=== PATIENT | male | born 1970 | race Caucasian/White ===

== ENCOUNTER 2023-03-13 10:29 | Outpatient (AMB) | payer OTHER, SELFPAY ==
--- NOTE | 2023-03-13 10:39 | MHC.OFFVIS ---
Intake Vital Signs 03/13/23 10:45 Height 5 ft 4 in Weight 119 lb BMI 20.4 Intake Visit Reasons: L posterior acetabular roof/iliac bone Fx 4mm Intake Note: Brendan 52 year old male who presents today for an evaluation of left posterior acetabular roof/iliac bone fracture, DOI . Patient reports he tripped causing him to fall and was unable to move his left leg. He presented to [facility] where xrays were taken, he followed up with PCP who referred him to orthopedics. Currently constant throbbing pain. No relief with Tylenol and Motrin. Denies numbness or tingling. Hx of left hip replacement. Allergies No Known Allergies Allergy (Verified 03/13/23 10:43) HPI L posterior acetabular roof/iliac bone Fx 4mm HPI Details 52-year-old male who presents to the office today for left hip pain. He has a LT hip hemiarthroplasty approx 20-25 years ago at [facility] resulting from a fall. On 02/15/23, he sustained another fall resulting in inability to weight bear on the LLE. He was seen at [facility] where x-rays were performed and he was followed-up with her PCP who referred him to our office. CT scan of the left hip at [facility] showed fracture through acetabular/iliac roof with 4mm displacement. There was also evidence of chronic fracture around the neck of the prosthesis which was also seen on imaging in 2013. He states he has a constant throbbing pain in his left leg. He is unable to bear weight on his left leg. He denies any numbness or tingling. He finds no relief with Tylenol or Motrin. [facility] Surgical History (Updated 03/13/23 @ 11:56 by Chris Payne PA-C) History of left hip replacement Social History (Updated 03/13/23 @ 10:44 by SAMI Orosco) Patient Tobacco Use Status: Current someday Tobacco user Current occupational status: unemployed Review of Systems Const All systems reviewed & are unremarkable except as noted in HPI and below Physical Exam Vital Signs: BMI result Body Mass Index 20.4 Const General: cooperative, healthy appearing, comfortable, no acute distress, well developed and alert Orientation/consciousness: patient oriented x3 HEENT Head: Yes normal to inspection, Yes normocephalic and Yes atraumatic Eyes General: appearance normal, both eyes and all related structures Resp Effort & Inspection: normal respiratory effort and able to speak in complete sentences Cardio Rate: regular rate Peripheral pulses: Peripheral pulses 2+ throughout GI Palpation (GI): Soft to palpation Skin Lesions: no lesions Rashes: no rashes Neuro General: patient oriented x3 Extrem Other: Left hip: Pain with ROM. He also experiences pain with hip flexion and extension. He walks with antalgic gait with a walker only applying pressure to the toes. NVI. Results Reviewed Results Reviewed: X-rays of the left hip obtained in the office today show intact hip prosthesis. There is some abnormality to the acetabulum with some evidence of bone loss along the greater and lesser trochanter of femur. Assessment & Plan Assessment & Plan (1) History of left hip hemiarthroplasty: Code(s): Z96.642 - Presence of left artificial hip joint Plan Images were reviewed with Dr. Britt. Because of the extent of his injury, it would be best that he be seen at a facility that performs complex revision hip arthroplasties which our office will facilitate and contact him with an appointment. He does understand all this. He did request pain medication at the time of his visit which I deferred to his PCP. He is content with this plan. Orders: Orders XR pelvis 1-2V Today M25.559 - Pain in unspecified hip Patient Instructions: Scribed for Chris Payne PA-C, by Uriel Olivarez general medical practitioner, on 03/13/2023 at 10:30 AM EST. IChris PA-C, have personally reviewed and agree with the information entered by the scribe. Coding Level of Care Code New Pt Level 3 (20034) Diagnoses History of left hip hemiarthroplasty Z96.642
[2023-03-13 10:45] VITALS: BMI 20.4
== END 2023-03-13 11:56 | disposition home or self-care (01) ==
PROVIDERS: PCP Nurse Practitioner Family; Visit Provider Physician Assistant
DX: S32.312A Displaced avulsion fracture of left ilium, initial encounter for closed fracture (principal); S32.422A Displaced fracture of posterior wall of left acetabulum, initial encounter for closed fracture
CPT/HCPCS: 99203

== ENCOUNTER 2023-03-13 17:15 | Outpatient (REF) | payer OTHER, SELFPAY ==
--- NOTE | ~2023-03-13 | XR_ITS ---
EXAMINATION: XR PELVIS CLINICAL INFORMATION: Pain. COMPARISON: None available. TECHNIQUE: AP view of the pelvis. FINDINGS: There is bony demineralization. Prosthetic components of the left total hip arthroplasty are appropriately aligned. No periprosthetic fracture. The right acetabular joint space is well-maintained, and the right femoral head is smooth. The sacroiliac joints are symmetric and well-maintained. The pubic symphysis is intact. There are bilateral iliac atherosclerotic calcifications. XR/XR pelvis 1-2V IMPRESSION: 1. There is an intact left hip total arthroplasty, without hardware failure, loosening or periprosthetic fracture noted. 2. No unusual degenerative change is seen of the right hip.
== END 2023-03-13 17:16 | disposition home or self-care (01) ==
LOC: HO.HOSX 17:15
PROVIDERS: Visit Provider Physician Assistant
DX: Z96.642 Presence of left artificial hip joint (principal)
CPT/HCPCS: 72170